=== PATIENT | male | born 1980 | race Caucasian/White ===

== ENCOUNTER 2018-03-25 21:48 | Emergency (ER) | payer OTHER ==
[~2018-03-25] VITALS: Ht 180.3 cm; Wt 71.2 kg
[~2018-03-25 21:48] MED LIST: IBUPROFEN 600600 M1 PO
[2018-03-25 22:47] LABS: ABSOLUTE NEUTROPHILS 4.1 thou/uL (1.4-8.2); BASOPHILS 0.9 % (0.0-2.0); EOSINOPHILS 3.4 % (0.0-3.0); HEMOGLOBIN 17.5 gm/dL (14.0-18.0); MCH 31.8 pg (26.0-34.0); MCHC 35.8 g/dL (28.0-37.0); MCV 88.9 fL (80.0-100.0); MONOCYTES 10.5 % (1.0-8.0); PLATELET COUNT 160 thou/uL (150-400); POLYS 48.2 % (36.0-66.0); RBC 5.51 mil/uL (4.50-6.00); RDW 12.6 % (10.5-14.5); WBC 8.5 thou/uL (4.0-11.0)
[2018-03-25 22:55] LABS: CALCIUM 9.3 mg/dL (8.5-10.1); CREATININE 0.9 mg/dL (0.7-1.3); POTASSIUM 3.3 mmol/L (3.5-5.1)
[2018-03-25] MEDS ORDERED: AZITHROMYCIN 2250 MG PO (23:27)
[2018-03-25 23:31] VITALS: BP 125/84
== END 2018-03-25 23:36 | disposition home or self-care (01) ==
LOC: ER 21:48
PROVIDERS: Student in an Organized Health Care Education/Training Program
DX: J18.9 Pneumonia, unspecified organism (principal); E78.5 Hyperlipidemia, unspecified; F17.210 Nicotine dependence, cigarettes, uncomplicated

== ENCOUNTER 2018-05-23 20:31 | Emergency (ER) | payer OTHER ==
[~2018-05-23] VITALS: Ht 180.3 cm; Wt 72.6 kg
[~2018-05-23 20:31] MED LIST changes: +AZITHROMYCIN 2250 MG PO
[2018-05-23 21:04] LABS: HEMOGLOBIN 17.3 gm/dL (14.0-18.0); PLATELET COUNT 110 thou/uL (150-400)
[2018-05-23 21:05] LABS: HEMATOCRIT 48.7 % (42.0-52.0); MCH 31.7 pg (26.0-34.0); MCHC 35.6 g/dL (28.0-37.0); RBC 5.47 mil/uL (4.50-6.00); RDW 13.3 % (10.5-14.5); WBC 4.8 thou/uL (4.0-11.0)
[2018-05-23 21:06] LABS: CALCIUM 8.9 mg/dL (8.5-10.1); POTASSIUM 3.2 mmol/L (3.5-5.1)
[2018-05-23 21:36] LABS: ABSOLUTE NEUTROPHILS 2.6 thou/uL (1.4-8.2)
[2018-05-23] MEDS ORDERED: AZITHROMYCIN 2250 MG PO (21:36)
[2018-05-23 21:37] LABS: LARGE PLATELETS FEW; PLATELET ESTIMATE DECREASED
[2018-05-23 21:43] VITALS: BP 131/82
== END 2018-05-23 21:52 | disposition home or self-care (01) ==
LOC: ER 20:31
PROVIDERS: Student in an Organized Health Care Education/Training Program
DX: J18.8 Other pneumonia, unspecified organism (principal); E78.5 Hyperlipidemia, unspecified